=== PATIENT | male | born 1980 ===

== ENCOUNTER 2018-08-09 21:20 | Inpatient (IN) | payer MEDICAID ==
[~2018-08-09] VITALS: Ht 177.8 cm; Wt 76.2 kg
[2018-08-09] MEDS ORDERED: ONDANSETRON 4 MG/2 ML VIAL ONE (21:36)
[2018-08-09] MEDS ORDERED: HYDROMORPHONE 1 MG/1 ML DISP.SYRIN ONE ×2 (21:36→23:40)
[2018-08-09] MEDS ORDERED: HYDR-3326 PO (21:36)
[2018-08-09] MEDS ORDERED: DOXY100T2 PO (21:36)
[2018-08-09 21:42] LABS: BASOPHILS # (AUTO) 0.1 K/uL (0.0-8.0); BASOPHILS % (AUTO) 0.6 % (0.0-2.0); EOSINOPHILS # (AUTO) 0.2 K/uL (0.0-0.7); EOSINOPHILS % (AUTO) 1.9 % (0.0-7.0); HEMATOCRIT 39.7 % (36.7-47.1); HEMOGLOBIN 13.9 g/dL (12.5-16.3); LYMPHOCYTES # (AUTO) 3.8 K/uL (20.0-40.0); LYMPHOCYTES % (AUTO) 37.7 % (20.5-51.5); MEAN CORPUSCULAR HEMOGLOBIN 30.5 uug (23.8-33.4); MEAN CORPUSCULAR HGB CONC 35 g/dL (32.5-36.3); MONOCYTES # (AUTO) 0.8 K/uL (2.0-10.0); MONOCYTES % (AUTO) 8.2 % (0.0-11.0); NEUTROPHILS # (AUTO) 5.2 K/uL (1.8-8.9); NEUTROPHILS % (AUTO) 51.6 % (38.5-71.5); PLATELET COUNT (AUTO) 318 K/uL (152-348); RED BLOOD CELL COUNT(AUTO) 4.56 MIL/uL (4.06-5.63); WHITE BLOOD COUNT (AUTO) 10.1 K/uL (3.6-10.2)
[2018-08-09] MEDS ORDERED: HYDROMORPHONE 1 MG/1 ML DISP.SYRIN IV ONE ×2 (21:45→23:45)
[2018-08-09] MEDS ORDERED: ONDANSETRON 4 MG/2 ML VIAL IV ONE (21:45)
[2018-08-09] MEDS ORDERED: IV NORMAL SALINE 1000 ML BAG IV ONE (21:45)
[2018-08-09 21:51] LABS: POTASSIUM 3.7 mmol/L (3.5-5.1)
[2018-08-09 22:04] LABS: BILIRUBIN,DIRECT 0.1 mg/dL (0.0-0.2); BILIRUBIN,TOTAL 0.4 mg/dL (0.2-1.0); TOTAL PROTEIN, SERUM 7.9 g/dL (6.4-8.2)
[2018-08-09] MEDS ORDERED: LORAZEPAM 2 MG/1 ML VIAL IV ONE (22:15)
[2018-08-09] MEDS ORDERED: LORAZEPAM 2 MG/1 ML VIAL ONE (22:16)
[2018-08-09] MEDS ORDERED: IOHEXOL 300MG/ML 100 ML INFUS..BTL IV ONE (22:44)
[2018-08-09] MEDS ORDERED: NORMAL SALINE FLUSH 10 ML DISP.SYRIN ONE (22:44)
[2018-08-09] MEDS ORDERED: SWABABLE VALVE TRANSFER SET EA MC ONE (22:44)
[2018-08-09] MEDS ORDERED: IV NORMAL SALINE 250 ML IV ONE (22:44)
[2018-08-09] MEDS ORDERED: IOHEXOL 350 100 ML INFUS..BTL ONE (22:44)
[2018-08-10] MEDS ORDERED: KETOROLAC TROMETHAMINE 30 MG INJ IVP ONE (01:15)
[2018-08-10] MEDS ORDERED: KETOROLAC TROMETHAMINE 30 MG INJ ONE (01:21)
[2018-08-10] MEDS ORDERED: Z GUARD REMEDY PASTE 57 GM TUBE TOP PRN (01:30)
[2018-08-10] MEDS ORDERED: ONDANSETRON 4 MG/2 ML VIAL IV PRN (01:30)
[2018-08-10] MEDS ORDERED: HYDROCODONE/APAP 5-325MG TABLET PO PRN (01:30)
[2018-08-10] MEDS: IV NS 1000 ML 1,000 ML IV PRN ×2 (02:19→19:41)
[2018-08-10 02:36] VITALS: BP 125/60
[2018-08-10 04:00] VITALS: BP 117/54
[2018-08-10] MEDS ORDERED: HYDROCODONE/APAP 5-325MG TABLET PO ONE (06:30)
[2018-08-10] MEDS ORDERED: DOXYCYCLINE HYCLATE 100 MG TABLET PO SCH (09:00)
[2018-08-10] MEDS ORDERED: DOXY100C41 PO (09:29)
[2018-08-10] MEDS ORDERED: DOXYCYCLINE HYCLATE 100 MG TABLET PO ONE (10:15)
[2018-08-10] MEDS ORDERED: NICOTINE 21 MG/24HR PATCH TD SCH (10:15)
[2018-08-10] MEDS: NICOTINE 21 MG/24HR PATCH TD SCH (10:35)
[2018-08-10] MEDS: HYDROMORPHONE 1 MG/1 ML DISP.SYRIN IV PRN ×3 (10:36→18:49)
[2018-08-10] MEDS: methylPREDNISolone SOD SUCC 40 MG/ML VIAL IV SCH ×2 (10:56→14:50)
[2018-08-10] MEDS: LEVOFLOXACIN 750MG/D5W 750 MG in PREMIXED 1 EACH IV SCH (10:56)
[2018-08-10 11:16] VITALS: BP 121/68
[2018-08-10 15:21] VITALS: BP 125/73
[2018-08-10 19:00] VITALS: BP 110/70
[2018-08-10 21:06] VITALS: BP 110/70
[2018-08-11] MEDS: methylPREDNISolone SOD SUCC 40 MG/ML VIAL IV SCH ×4 (02:50→21:05)
[2018-08-11] MEDS: HYDROMORPHONE 1 MG/1 ML DISP.SYRIN IV PRN ×4 (03:11→20:54)
[2018-08-11 04:00] VITALS: BP 115/70
[2018-08-11 06:26] LABS: BASOPHILS % (AUTO) 0.1 % (0.0-2.0); HEMATOCRIT 35.2 % (36.7-47.1); HEMOGLOBIN 12.2 g/dL (12.5-16.3); LYMPHOCYTES # (AUTO) 0.7 K/uL (20.0-40.0); LYMPHOCYTES % (AUTO) 5.5 % (20.5-51.5); MEAN CORPUSCULAR HEMOGLOBIN 29.7 uug (23.8-33.4); MEAN CORPUSCULAR HGB CONC 35 g/dL (32.5-36.3); MEAN CORPUSCULAR VOLUME 85.3 fL (73.0-96.2); MONOCYTES # (AUTO) 0.6 K/uL (2.0-10.0); MONOCYTES % (AUTO) 4.7 % (0.0-11.0); NEUTROPHILS # (AUTO) 10.8 K/uL (1.8-8.9); NEUTROPHILS % (AUTO) 89.7 % (38.5-71.5); PLATELET COUNT (AUTO) 281 K/uL (152-348); RED BLOOD CELL COUNT(AUTO) 4.13 MIL/uL (4.06-5.63)
[2018-08-11 06:41] LABS: CREATININE 0.8 mg/dL (0.6-1.3); MAGNESIUM 2.1 mg/dL (1.8-2.4); PHOSPHOROUS 2.5 mg/dL (2.5-4.9); POTASSIUM 3.9 mmol/L (3.5-5.1)
[2018-08-11] MEDS: NICOTINE 21 MG/24HR PATCH TD SCH (08:36)
[2018-08-11 08:42] VITALS: BP 119/71
[2018-08-11] MEDS: LEVOFLOXACIN 750MG/D5W 750 MG in PREMIXED 1 EACH IV SCH (11:10)
[2018-08-11 11:20] VITALS: BP 131/75
[2018-08-11] MEDS ORDERED: HYDR1DIS2 IV (11:28)
[2018-08-11] MEDS ORDERED: NICO-672 TD (11:28)
[2018-08-11] MEDS ORDERED: methylPREDNISolone SOD SUCC IV (11:28)
[2018-08-11] MEDS ORDERED: LEVO750T21 IV (11:28)
[2018-08-11] MEDS ORDERED: IPRA0.2S6 NEB (11:28)
[2018-08-11] MEDS: IV NS 1000 ML 1,000 ML IV PRN (15:10)
[2018-08-11 15:13] LABS: THYROID STIMULATING HORMONE 0.627 mIU/mL (0.358-3.740)
[2018-08-11 15:22] VITALS: BP 111/69
[2018-08-11] MEDS ORDERED: MAGNESIUM HYDROXIDE 30 ML LIQUID UDC PO ONE (18:45)
[2018-08-11 20:00] VITALS: BP 117/64
[2018-08-12] VITALS: BP 125/69
[2018-08-12] MEDS: methylPREDNISolone SOD SUCC 40 MG/ML VIAL IV SCH (05:14)
[2018-08-12] MEDS: HYDROMORPHONE 1 MG/1 ML DISP.SYRIN IV PRN ×3 (05:15→15:22)
[2018-08-12] MEDS: IPRATROPIUM BROMIDE 0.5 MG/2.5 ML NEBU NEB PRN ×3 (05:47→19:57)
[2018-08-12] MEDS: IV NS 1000 ML 1,000 ML IV PRN ×3 (06:51→22:16)
[2018-08-12] MEDS: NICOTINE 21 MG/24HR PATCH TD SCH (08:47)
[2018-08-12] MEDS: HYDROCODONE/APAP 5-325MG TABLET PO PRN ×3 (08:51→21:48)
[2018-08-12 10:18] LABS: BASOPHILS % (AUTO) 0.3 % (0.0-2.0); HEMATOCRIT 38.8 % (36.7-47.1); HEMOGLOBIN 13.2 g/dL (12.5-16.3); LYMPHOCYTES # (AUTO) 0.7 K/uL (20.0-40.0); LYMPHOCYTES % (AUTO) 4.1 % (20.5-51.5); MEAN CORPUSCULAR HEMOGLOBIN 29.7 uug (23.8-33.4); MEAN CORPUSCULAR HGB CONC 34 g/dL (32.5-36.3); MEAN CORPUSCULAR VOLUME 87.1 fL (73.0-96.2); MONOCYTES # (AUTO) 0.4 K/uL (2.0-10.0); MONOCYTES % (AUTO) 2.4 % (0.0-11.0); NEUTROPHILS # (AUTO) 15.6 K/uL (1.8-8.9); NEUTROPHILS % (AUTO) 93.2 % (38.5-71.5); PLATELET COUNT (AUTO) 364 K/uL (152-348); RED BLOOD CELL COUNT(AUTO) 4.45 MIL/uL (4.06-5.63); WHITE BLOOD COUNT (AUTO) 16.7 K/uL (3.6-10.2)
[2018-08-12 10:27] LABS: CREATININE 0.9 mg/dL (0.6-1.3); POTASSIUM 3.9 mmol/L (3.5-5.1)
[2018-08-12 11:02] VITALS: BP 109/66
[2018-08-12] MEDS: LEVOFLOXACIN 750MG/D5W 750 MG in PREMIXED 1 EACH IV SCH (11:29)
[2018-08-12 14:38] LABS: *AMPHETAMINE, URINE NEGATIVE (NEGATIVE); *BARBITURATE, URINE NEGATIVE (NEGATIVE); *CANNABINOID, URINE NEGATIVE (NEGATIVE); *COCCAINE, URINE NEGATIVE (NEGATIVE); *OPIATE, URINE POSITIVE (NEGATIVE); *PHENCYCLIDINE SCREEN,URINE NEGATIVE (NEGATIVE)
[2018-08-12 15:03] VITALS: BP 118/62
[2018-08-12] MEDS: IBUPROFEN 600 MG TABLET PO PRN (15:22)
[2018-08-12 19:53] VITALS: BP 117/65
[2018-08-12] MEDS: FERROUS SULFATE 325 MG TABEC PO SCH (21:50)
[2018-08-12] MEDS: MAGNESIUM HYDROXIDE 30 ML LIQUID UDC PO PRN (21:51)
[2018-08-13 04:37] VITALS: BP 111/65
[2018-08-13] MEDS: HYDROCODONE/APAP 5-325MG TABLET PO PRN (05:47)
[2018-08-13 06:04] LABS: BASOPHILS # (AUTO) 0.1 K/uL (0.0-8.0); BASOPHILS % (AUTO) 0.4 % (0.0-2.0); EOSINOPHILS # (AUTO) 0.1 K/uL (0.0-0.7); EOSINOPHILS % (AUTO) 0.9 % (0.0-7.0); HEMATOCRIT 35.9 % (36.7-47.1); HEMOGLOBIN 12.2 g/dL (12.5-16.3); LYMPHOCYTES # (AUTO) 2.8 K/uL (20.0-40.0); LYMPHOCYTES % (AUTO) 23.4 % (20.5-51.5); MEAN CORPUSCULAR HEMOGLOBIN 29.2 uug (23.8-33.4); MEAN CORPUSCULAR HGB CONC 34 g/dL (32.5-36.3); MONOCYTES # (AUTO) 0.8 K/uL (2.0-10.0); MONOCYTES % (AUTO) 6.4 % (0.0-11.0); NEUTROPHILS # (AUTO) 8.2 K/uL (1.8-8.9); NEUTROPHILS % (AUTO) 68.9 % (38.5-71.5); PLATELET COUNT (AUTO) 326 K/uL (152-348); RED BLOOD CELL COUNT(AUTO) 4.18 MIL/uL (4.06-5.63); WHITE BLOOD COUNT (AUTO) 11.8 K/uL (3.6-10.2)
[2018-08-13 06:17] LABS: CREATININE 0.8 mg/dL (0.6-1.3); MAGNESIUM 2.2 mg/dL (1.8-2.4); PHOSPHOROUS 3.5 mg/dL (2.5-4.9)
[2018-08-13] MEDS: HYDROMORPHONE 1 MG/1 ML DISP.SYRIN IV PRN ×4 (06:55→20:41)
[2018-08-13] MEDS: IPRATROPIUM BROMIDE 0.5 MG/2.5 ML NEBU NEB PRN ×3 (07:11→20:51)
[2018-08-13] MEDS: NICOTINE 21 MG/24HR PATCH TD SCH (08:42)
[2018-08-13] MEDS: FERROUS SULFATE 325 MG TABEC PO SCH ×2 (08:42→20:40)
[2018-08-13] MEDS: IBUPROFEN 600 MG TABLET PO PRN ×2 (09:35→22:42)
[2018-08-13 10:09] LABS: CRYPTOCOCCUS AB, SERUM Negative (Negative)
[2018-08-13] MEDS: IV NS 1000 ML 1,000 ML IV PRN (10:56)
[2018-08-13] MEDS: LEVOFLOXACIN 750MG/D5W 750 MG in PREMIXED 1 EACH IV SCH (10:56)
[2018-08-13] MEDS: LIDOCAINE 5% PATCH TD SCH (10:56)
[2018-08-13 11:46] VITALS: BP 110/67
[2018-08-13] MEDS ORDERED: CEFTRIAXONE 1 G VIAL IV SCH (12:30)
[2018-08-13] MEDS ORDERED: FLUCONAZOLE 400MG /NS 200ML IV 400 MG in PREMIXED 1 EACH IV SCH (13:00)
[2018-08-13] MEDS ORDERED: CEFTRIAXONE 1 G in IV DEXTROSE 5% 50 ML IV SCH (14:00)
[2018-08-13 16:30] VITALS: BP_SYST 119; BP_SYST 135; BP_DIAS 64; BP_DIAS 67
[2018-08-13 20:00] VITALS: BP 119/68
[2018-08-13] MEDS: MAGNESIUM HYDROXIDE 30 ML LIQUID UDC PO PRN (20:40)
[2018-08-14] MEDS: HYDROMORPHONE 1 MG/1 ML DISP.SYRIN IV PRN ×5 (02:44→22:33)
[2018-08-14] MEDS: IV NS 1000 ML 1,000 ML IV PRN ×2 (02:47→13:39)
[2018-08-14] MEDS: IBUPROFEN 600 MG TABLET PO PRN ×3 (05:49→16:41)
[2018-08-14 05:55] VITALS: BP 121/69
[2018-08-14 05:55] LABS: BASOPHILS # (AUTO) 0.1 K/uL (0.0-8.0); BASOPHILS % (AUTO) 0.8 % (0.0-2.0); EOSINOPHILS # (AUTO) 0.4 K/uL (0.0-0.7); HEMATOCRIT 43.5 % (36.7-47.1); HEMOGLOBIN 14.9 g/dL (12.5-16.3); LYMPHOCYTES # (AUTO) 2.4 K/uL (20.0-40.0); LYMPHOCYTES % (AUTO) 21.9 % (20.5-51.5); MEAN CORPUSCULAR HEMOGLOBIN 29.6 uug (23.8-33.4); MEAN CORPUSCULAR HGB CONC 34 g/dL (32.5-36.3); MEAN CORPUSCULAR VOLUME 86.4 fL (73.0-96.2); MONOCYTES # (AUTO) 0.8 K/uL (2.0-10.0); NEUTROPHILS # (AUTO) 7.2 K/uL (1.8-8.9); NEUTROPHILS % (AUTO) 66.3 % (38.5-71.5); PLATELET COUNT (AUTO) 382 K/uL (152-348); RED BLOOD CELL COUNT(AUTO) 5.04 MIL/uL (4.06-5.63); WHITE BLOOD COUNT (AUTO) 10.8 K/uL (3.6-10.2)
[2018-08-14 06:12] LABS: CREATININE 0.8 mg/dL (0.6-1.3); MAGNESIUM 2.5 mg/dL (1.8-2.4); PHOSPHOROUS 3.5 mg/dL (2.5-4.9); POTASSIUM 4.4 mmol/L (3.5-5.1)
[2018-08-14 08:00] VITALS: BP 127/72
[2018-08-14] MEDS: NICOTINE 21 MG/24HR PATCH TD SCH (08:49)
[2018-08-14] MEDS: FERROUS SULFATE 325 MG TABEC PO SCH ×2 (08:49→20:34)
[2018-08-14] MEDS: LIDOCAINE 5% PATCH TD SCH (08:49)
[2018-08-14] MEDS ORDERED: PIPERACILLIN/TAZOBACTAM/D5W 50 ML IV SCH (12:45)
[2018-08-14] MEDS: VANCOMYCIN IV 1,250 MG in IV DEXTROSE 5% 500 ML IV SCH ×2 (13:17→20:34)
[2018-08-14] MEDS: PIPERACILLIN/TAZOBACTAM/D5W 3.375 G in PREMIXED 1 EACH IV SCH ×2 (13:56→22:33)
[2018-08-14] MEDS: IPRATROPIUM BROMIDE 0.5 MG/2.5 ML NEBU NEB PRN ×2 (14:25→18:34)
[2018-08-14] MEDS: FLUCONAZOLE 400MG /NS 200ML IV 400 MG in PREMIXED 1 EACH IV SCH (15:53)
[2018-08-14 16:00] VITALS: BP 125/68
[2018-08-14] MEDS: MAGNESIUM HYDROXIDE 30 ML LIQUID UDC PO PRN (16:39)
[2018-08-14] MEDS: HYDROCODONE/APAP 5-325MG TABLET PO PRN (16:42)
[2018-08-14 19:57] VITALS: BP 119/66
[2018-08-15] MEDS: HYDROMORPHONE 1 MG/1 ML DISP.SYRIN IV PRN ×5 (03:21→20:06)
[2018-08-15] MEDS: ACETAMINOPHEN 325 MG TABLET PO PRN (03:24)
[2018-08-15] MEDS: VANCOMYCIN IV 1,250 MG in IV DEXTROSE 5% 500 ML IV SCH ×3 (04:50→20:04)
[2018-08-15 05:11] VITALS: BP 124/72
[2018-08-15 06:12] LABS: BASOPHILS # (AUTO) 0.1 K/uL (0.0-8.0); BASOPHILS % (AUTO) 0.4 % (0.0-2.0); EOSINOPHILS # (AUTO) 0.3 K/uL (0.0-0.7); EOSINOPHILS % (AUTO) 2.3 % (0.0-7.0); HEMATOCRIT 37.8 % (36.7-47.1); LYMPHOCYTES # (AUTO) 1.5 K/uL (20.0-40.0); LYMPHOCYTES % (AUTO) 10.9 % (20.5-51.5); MEAN CORPUSCULAR HEMOGLOBIN 29.8 uug (23.8-33.4); MEAN CORPUSCULAR HGB CONC 35 g/dL (32.5-36.3); MEAN CORPUSCULAR VOLUME 86.2 fL (73.0-96.2); MONOCYTES # (AUTO) 0.8 K/uL (2.0-10.0); NEUTROPHILS % (AUTO) 80.4 % (38.5-71.5); PLATELET COUNT (AUTO) 334 K/uL (152-348); RED BLOOD CELL COUNT(AUTO) 4.38 MIL/uL (4.06-5.63); WHITE BLOOD COUNT (AUTO) 13.7 K/uL (3.6-10.2)
[2018-08-15 06:25] LABS: CREATININE 0.9 mg/dL (0.6-1.3); MAGNESIUM 2.1 mg/dL (1.8-2.4); PHOSPHOROUS 3.5 mg/dL (2.5-4.9); POTASSIUM 4.4 mmol/L (3.5-5.1)
[2018-08-15] MEDS: PIPERACILLIN/TAZOBACTAM/D5W 3.375 G in PREMIXED 1 EACH IV SCH ×3 (07:34→22:03)
[2018-08-15] MEDS: IV NS 1000 ML 1,000 ML IV PRN (07:35)
[2018-08-15 07:49] VITALS: BP 104/62
[2018-08-15] MEDS: IPRATROPIUM BROMIDE 0.5 MG/2.5 ML NEBU NEB PRN ×2 (08:03→16:25)
[2018-08-15] MEDS: FERROUS SULFATE 325 MG TABEC PO SCH ×2 (08:45→20:04)
[2018-08-15] MEDS: LIDOCAINE 5% PATCH TD SCH (08:46)
[2018-08-15] MEDS: NICOTINE 21 MG/24HR PATCH TD SCH (08:46)
[2018-08-15] MEDS: MAGNESIUM HYDROXIDE 30 ML LIQUID UDC PO PRN ×2 (08:58→20:04)
[2018-08-15] MEDS: IBUPROFEN 600 MG TABLET PO PRN (10:33)
[2018-08-15] MEDS ORDERED: BISACODYL 10 MG SUPP.RECT RC PRN (10:45)
[2018-08-15 11:09] VITALS: BP 126/68
[2018-08-15 12:10] LABS: *BILIRUBIN,URIN NEGATIVE (NEGATIVE); *BLOOD, URINE NEGATIVE (NEGATIVE); *CLARITY,URINE CLEAR (CLEAR); *COLOR,URINE YELLOW (YELLOW); *KETONES,URINE NEGATIVE (NEGATIVE); *PROTEIN,URINE NEGATIVE (NEGATIVE); *UROBILINOGEN,URINE 0.2 E.U./dl (NORMAL); LEUKOCYTE ESTERASE ,URINE NEGATIVE (NEGATIVE); NITRITE, URINE NEGATIVE (NEGATIVE); PH,URINE 7.5 (5.0-8.0); UGLUCOSE NEGATIVE (NEGATIVE)
[2018-08-15 12:23] LABS: RBC,URINE 0-3 /HPF (0-3)
[2018-08-15 12:24] LABS: BACTERIA,URINE NONE SEEN /HPF (NONE SEEN); SQUAMOUS EPITHELIAL CELL,UR FEW /HPF (NONE SEEN)
[2018-08-15 12:25] LABS: MUCUS,URINE FEW /LPF (0-FEW)
[2018-08-15 15:02] VITALS: BP 108/62
[2018-08-15] MEDS: FLUCONAZOLE 400MG /NS 200ML IV 400 MG in PREMIXED 1 EACH IV SCH (15:57)
[2018-08-15 20:00] VITALS: BP 112/68
[2018-08-15 22:56] LABS: *OCCULT BLOOD STOOL POSITIVE (NEGATIVE)
[2018-08-16] MEDS: VANCOMYCIN IV 1,250 MG in IV DEXTROSE 5% 500 ML IV SCH ×3 (03:33→18:29)
[2018-08-16 04:00] VITALS: BP 119/65
[2018-08-16] MEDS: HYDROMORPHONE 1 MG/1 ML DISP.SYRIN IV PRN ×6 (04:18→20:17)
[2018-08-16] MEDS: PIPERACILLIN/TAZOBACTAM/D5W 3.375 G in PREMIXED 1 EACH IV SCH ×3 (05:08→21:01)
[2018-08-16] MEDS: ACETAMINOPHEN 325 MG TABLET PO PRN (05:09)
[2018-08-16] MEDS: IV NS 1000 ML 1,000 ML IV PRN (05:10)
[2018-08-16] MEDS: IPRATROPIUM BROMIDE 0.5 MG/2.5 ML NEBU NEB PRN ×3 (07:18→19:00)
[2018-08-16] MEDS: FERROUS SULFATE 325 MG TABEC PO SCH ×2 (08:17→20:16)
[2018-08-16] MEDS: LIDOCAINE 5% PATCH TD SCH (08:17)
[2018-08-16] MEDS: NICOTINE 21 MG/24HR PATCH TD SCH (08:17)
[2018-08-16] MEDS: IBUPROFEN 600 MG TABLET PO PRN (09:47)
[2018-08-16 10:13] LABS: BASOPHILS # (AUTO) 0.2 K/uL (0.0-8.0); EOSINOPHILS # (AUTO) 0.4 K/uL (0.0-0.7); EOSINOPHILS % (AUTO) 2.3 % (0.0-7.0); HEMATOCRIT 37.5 % (36.7-47.1); HEMOGLOBIN 12.7 g/dL (12.5-16.3); LYMPHOCYTES # (AUTO) 1.5 K/uL (20.0-40.0); LYMPHOCYTES % (AUTO) 8.8 % (20.5-51.5); MEAN CORPUSCULAR HEMOGLOBIN 29.7 uug (23.8-33.4); MEAN CORPUSCULAR HGB CONC 34 g/dL (32.5-36.3); MEAN CORPUSCULAR VOLUME 87.6 fL (73.0-96.2); MONOCYTES # (AUTO) 1.2 K/uL (2.0-10.0); MONOCYTES % (AUTO) 6.6 % (0.0-11.0); NEUTROPHILS # (AUTO) 14.1 K/uL (1.8-8.9); NEUTROPHILS % (AUTO) 81.3 % (38.5-71.5); PLATELET COUNT (AUTO) 478 K/uL (152-348); RED BLOOD CELL COUNT(AUTO) 4.28 MIL/uL (4.06-5.63); WHITE BLOOD COUNT (AUTO) 17.4 K/uL (3.6-10.2)
[2018-08-16 10:19] LABS: POTASSIUM 4.2 mmol/L (3.5-5.1)
[2018-08-16 12:00] VITALS: BP 103/53
[2018-08-16] MEDS: FLUCONAZOLE 400MG /NS 200ML IV 400 MG in PREMIXED 1 EACH IV SCH (15:36)
[2018-08-16 16:00] VITALS: BP_SYST 108; BP_SYST 121; BP_DIAS 56; BP_DIAS 70
[2018-08-16 19:10] VITALS: BP 131/80
[2018-08-17] MEDS: HYDROMORPHONE 1 MG/1 ML DISP.SYRIN IV PRN ×5 (00:17→20:26)
[2018-08-17] MEDS: VANCOMYCIN IV 1,250 MG in IV DEXTROSE 5% 500 ML IV SCH ×3 (02:48→18:29)
[2018-08-17 03:31] VITALS: BP 101/58
[2018-08-17] MEDS: IV NS 1000 ML 1,000 ML IV PRN (05:02)
[2018-08-17] MEDS: PIPERACILLIN/TAZOBACTAM/D5W 3.375 G in PREMIXED 1 EACH IV SCH ×3 (05:02→23:10)
[2018-08-17 05:42] LABS: BASOPHILS # (AUTO) 0.1 K/uL (0.0-8.0); BASOPHILS % (AUTO) 0.6 % (0.0-2.0); EOSINOPHILS # (AUTO) 0.4 K/uL (0.0-0.7); EOSINOPHILS % (AUTO) 3.3 % (0.0-7.0); HEMATOCRIT 35.5 % (36.7-47.1); HEMOGLOBIN 12.3 g/dL (12.5-16.3); LYMPHOCYTES # (AUTO) 1.7 K/uL (20.0-40.0); LYMPHOCYTES % (AUTO) 15.1 % (20.5-51.5); MEAN CORPUSCULAR HEMOGLOBIN 29.6 uug (23.8-33.4); MEAN CORPUSCULAR HGB CONC 35 g/dL (32.5-36.3); MEAN CORPUSCULAR VOLUME 85.4 fL (73.0-96.2); MONOCYTES # (AUTO) 1.1 K/uL (2.0-10.0); NEUTROPHILS # (AUTO) 8.1 K/uL (1.8-8.9); PLATELET COUNT (AUTO) 402 K/uL (152-348); RED BLOOD CELL COUNT(AUTO) 4.15 MIL/uL (4.06-5.63); WHITE BLOOD COUNT (AUTO) 11.4 K/uL (3.6-10.2)
[2018-08-17 05:59] LABS: CREATININE 0.8 mg/dL (0.6-1.3); MAGNESIUM 2.2 mg/dL (1.8-2.4); PHOSPHOROUS 3.7 mg/dL (2.5-4.9); POTASSIUM 4.1 mmol/L (3.5-5.1)
[2018-08-17] MEDS: IPRATROPIUM BROMIDE 0.5 MG/2.5 ML NEBU NEB PRN (08:22)
[2018-08-17] MEDS: FERROUS SULFATE 325 MG TABEC PO SCH ×2 (08:24→20:16)
[2018-08-17] MEDS: NICOTINE 21 MG/24HR PATCH TD SCH (08:24)
[2018-08-17] MEDS: LIDOCAINE 5% PATCH TD SCH (08:24)
[2018-08-17] MEDS: ACETAMINOPHEN 325 MG TABLET PO PRN (11:00)
[2018-08-17 12:09] VITALS: BP 117/68
[2018-08-17] MEDS ORDERED: DOSING BY PHARMACY-MD TO SPECIFY MED/ROUTE XX PRN (13:30)
[2018-08-17] MEDS: SULFAMETHOXAZOL/TRIMETHOPRI IV 20 ML in IV DEXTROSE 5% 500 ML IV SCH ×2 (14:15→21:02)
[2018-08-17 15:40] VITALS: BP 109/59
[2018-08-17] MEDS: VORICONAZOLE 200 MG TABLET PO SCH ×2 (16:00→20:17)
[2018-08-17] MEDS ORDERED: SODIUM CHLORIDE 3% FOR INHALATION 15 ML NEBU IH ONE (16:30)
[2018-08-17 19:47] VITALS: BP 117/69
[2018-08-17] MEDS: PANTOPRAZOLE SODIUM 40 MG VIAL IV SCH (20:16)
[2018-08-18] MEDS: VANCOMYCIN IV 1,250 MG in IV DEXTROSE 5% 500 ML IV SCH ×2 (02:21→15:10)
[2018-08-18] MEDS: ACETAMINOPHEN 325 MG TABLET PO PRN ×2 (04:16→22:02)
[2018-08-18] MEDS: HYDROMORPHONE 1 MG/1 ML DISP.SYRIN IV PRN (04:58)
[2018-08-18] MEDS: SULFAMETHOXAZOL/TRIMETHOPRI IV 20 ML in IV DEXTROSE 5% 500 ML IV SCH ×3 (05:03→22:44)
[2018-08-18 05:20] VITALS: BP 110/60
[2018-08-18] MEDS: IV NS 1000 ML 1,000 ML IV PRN (06:19)
[2018-08-18 06:39] LABS: BASOPHILS # (AUTO) 0.1 K/uL (0.0-8.0); BASOPHILS % (AUTO) 0.8 % (0.0-2.0); EOSINOPHILS # (AUTO) 0.2 K/uL (0.0-0.7); EOSINOPHILS % (AUTO) 1.7 % (0.0-7.0); HEMOGLOBIN 11.9 g/dL (12.5-16.3); LYMPHOCYTES # (AUTO) 1.3 K/uL (20.0-40.0); LYMPHOCYTES % (AUTO) 12.3 % (20.5-51.5); MEAN CORPUSCULAR HEMOGLOBIN 30.2 uug (23.8-33.4); MEAN CORPUSCULAR HGB CONC 35 g/dL (32.5-36.3); MEAN CORPUSCULAR VOLUME 86.4 fL (73.0-96.2); MONOCYTES % (AUTO) 9.2 % (0.0-11.0); NEUTROPHILS # (AUTO) 7.8 K/uL (1.8-8.9); PLATELET COUNT (AUTO) 421 K/uL (152-348); RED BLOOD CELL COUNT(AUTO) 3.93 MIL/uL (4.06-5.63); WHITE BLOOD COUNT (AUTO) 10.3 K/uL (3.6-10.2)
[2018-08-18 06:40] LABS: CREATININE 1.1 mg/dL (0.6-1.3); POTASSIUM 4.1 mmol/L (3.5-5.1)
[2018-08-18] MEDS: PIPERACILLIN/TAZOBACTAM/D5W 3.375 G in PREMIXED 1 EACH IV SCH ×3 (07:14→22:00)
[2018-08-18] MEDS: LIDOCAINE 5% PATCH TD SCH (08:01)
[2018-08-18] MEDS: NICOTINE 21 MG/24HR PATCH TD SCH (08:01)
[2018-08-18] MEDS: PANTOPRAZOLE SODIUM 40 MG VIAL IV SCH ×2 (08:15→21:38)
[2018-08-18] MEDS ORDERED: IV LACTATED RINGERS SOLUTION 1,000 ML BAG IV ONE (09:16)
[2018-08-18] MEDS ORDERED: PROPOFOL 200 MG/20 ML BOTTLE IV ONE (09:16)
[2018-08-18] MEDS ORDERED: LIDOCAINE HCL 2% 20 ML VIAL IJ ONE (09:16)
[2018-08-18] MEDS: FERROUS SULFATE 325 MG TABEC PO SCH ×2 (10:02→21:38)
[2018-08-18] MEDS: VORICONAZOLE 200 MG TABLET PO SCH (10:02)
[2018-08-18 10:18] VITALS: BP 118/63
[2018-08-18 12:00] VITALS: BP 109/60
[2018-08-18] MEDS: HYDROCODONE/APAP 5-325MG TABLET PO PRN (13:20)
[2018-08-18 16:00] VITALS: BP 111/66
[2018-08-18 20:01] VITALS: BP 115/55
[2018-08-18] MEDS: DEXTROSE 5% IV SCH (21:18)
[2018-08-18] MEDS: VORICONAZOLE IV SCH (21:18)
[2018-08-19] MEDS: VANCOMYCIN IV 1,250 MG in IV DEXTROSE 5% 500 ML IV SCH ×2 (02:04→16:09)
[2018-08-19] MEDS: SULFAMETHOXAZOL/TRIMETHOPRI IV 20 ML in IV DEXTROSE 5% 500 ML IV SCH ×2 (05:22→14:04)
[2018-08-19] MEDS: PIPERACILLIN/TAZOBACTAM/D5W 3.375 G in PREMIXED 1 EACH IV SCH ×3 (05:22→22:27)
[2018-08-19 06:22] VITALS: BP 107/56
[2018-08-19 06:52] LABS: CREATININE 1.1 mg/dL (0.6-1.3); POTASSIUM 4.1 mmol/L (3.5-5.1)
[2018-08-19 07:07] LABS: BASOPHILS # (AUTO) 0.1 K/uL (0.0-8.0); EOSINOPHILS # (AUTO) 0.1 K/uL (0.0-0.7)
[2018-08-19 07:34] LABS: BASOPHILS % (AUTO) 0.7 % (0.0-2.0); EOSINOPHILS % (AUTO) 1.3 % (0.0-7.0); LYMPHOCYTES # (AUTO) 1.4 K/uL (20.0-40.0); LYMPHOCYTES % (AUTO) 14.7 % (20.5-51.5); MEAN CORPUSCULAR HEMOGLOBIN 29.6 uug (23.8-33.4); MEAN CORPUSCULAR HGB CONC 34 g/dL (32.5-36.3); MEAN CORPUSCULAR VOLUME 86.8 fL (73.0-96.2); MONOCYTES # (AUTO) 0.8 K/uL (2.0-10.0); MONOCYTES % (AUTO) 8.4 % (0.0-11.0); NEUTROPHILS # (AUTO) 6.9 K/uL (1.8-8.9); NEUTROPHILS % (AUTO) 74.9 % (38.5-71.5); PLATELET COUNT (AUTO) 437 K/uL (152-348); RED BLOOD CELL COUNT(AUTO) 4.36 MIL/uL (4.06-5.63); WHITE BLOOD COUNT (AUTO) 9.2 K/uL (3.6-10.2)
[2018-08-19 07:35] LABS: HEMATOCRIT 37.8 % (36.7-47.1); HEMOGLOBIN 12.9 g/dL (12.5-16.3)
[2018-08-19] MEDS: DEXTROSE 5% IV SCH ×2 (08:07→20:26)
[2018-08-19] MEDS: FERROUS SULFATE 325 MG TABEC PO SCH ×2 (08:07→20:26)
[2018-08-19] MEDS: LIDOCAINE 5% PATCH TD SCH (08:07)
[2018-08-19] MEDS: VORICONAZOLE IV SCH ×2 (08:07→20:26)
[2018-08-19] MEDS: PANTOPRAZOLE SODIUM 40 MG VIAL IV SCH ×2 (08:07→20:26)
[2018-08-19] MEDS: NICOTINE 21 MG/24HR PATCH TD SCH (08:07)
[2018-08-19] MEDS: ACETAMINOPHEN 325 MG TABLET PO PRN ×2 (08:51→17:21)
[2018-08-19 10:07] LABS: IMMUNOGLOBULIN E, TOTAL 47 IU/mL (0-100)
[2018-08-19 11:16] VITALS: BP 108/55
[2018-08-19] MEDS: IV NS 1000 ML 1,000 ML IV PRN (12:17)
[2018-08-19 15:19] VITALS: BP 114/63
[2018-08-19 20:46] VITALS: BP 112/72
[2018-08-20] MEDS: VANCOMYCIN IV 1,250 MG in IV DEXTROSE 5% 500 ML IV SCH (01:45)
[2018-08-20] MEDS: PIPERACILLIN/TAZOBACTAM/D5W 3.375 G in PREMIXED 1 EACH IV SCH ×2 (05:11→13:02)
[2018-08-20 06:28] LABS: BASOPHILS # (AUTO) 0.1 K/uL (0.0-8.0); BASOPHILS % (AUTO) 0.8 % (0.0-2.0); EOSINOPHILS # (AUTO) 0.2 K/uL (0.0-0.7); EOSINOPHILS % (AUTO) 1.5 % (0.0-7.0); HEMATOCRIT 36.9 % (36.7-47.1); HEMOGLOBIN 12.5 g/dL (12.5-16.3); LYMPHOCYTES # (AUTO) 1.8 K/uL (20.0-40.0); LYMPHOCYTES % (AUTO) 17.3 % (20.5-51.5); MEAN CORPUSCULAR HEMOGLOBIN 29.3 uug (23.8-33.4); MEAN CORPUSCULAR HGB CONC 34 g/dL (32.5-36.3); MEAN CORPUSCULAR VOLUME 86.8 fL (73.0-96.2); MONOCYTES % (AUTO) 9.7 % (0.0-11.0); NEUTROPHILS # (AUTO) 7.5 K/uL (1.8-8.9); NEUTROPHILS % (AUTO) 70.7 % (38.5-71.5); PLATELET COUNT (AUTO) 444 K/uL (152-348); RED BLOOD CELL COUNT(AUTO) 4.26 MIL/uL (4.06-5.63); WHITE BLOOD COUNT (AUTO) 10.6 K/uL (3.6-10.2)
[2018-08-20 06:31] LABS: CREATININE 1.1 mg/dL (0.6-1.3); POTASSIUM 4.1 mmol/L (3.5-5.1)
[2018-08-20 06:33] VITALS: BP 106/61
[2018-08-20] MEDS: FERROUS SULFATE 325 MG TABEC PO SCH (08:05)
[2018-08-20] MEDS: NICOTINE 21 MG/24HR PATCH TD SCH (08:05)
[2018-08-20] MEDS: LIDOCAINE 5% PATCH TD SCH (08:05)
[2018-08-20] MEDS: PANTOPRAZOLE SODIUM 40 MG VIAL IV SCH (08:18)
[2018-08-20] MEDS: DEXTROSE 5% IV SCH (08:18)
[2018-08-20] MEDS: VORICONAZOLE IV SCH (08:18)
[2018-08-20] MEDS: MAGNESIUM HYDROXIDE 30 ML LIQUID UDC PO PRN (08:24)
[2018-08-20 11:10] VITALS: BP 123/71
[2018-08-20] MEDS ORDERED: ONDA4SOL2 PO (14:18)
[2018-08-20] MEDS ORDERED: PANT40TA2 PO (14:18)
[2018-08-20] MEDS ORDERED: FLUC200T PO (14:18)
[2018-08-20] MEDS ORDERED: LEVO750T46 PO (14:18)
[2018-08-20] MEDS ORDERED: AMOX-427 PO (14:18)
== END 2018-08-20 14:50 | disposition home or self-care (01) | DRG 139 ==
LOC: ER 21:20 → TELE 08-10 02:07 → MED 08-10 13:49
PROVIDERS: ADMIT Internal Medicine; ATTEND Nurse Practitioner Acute Care
PROC: 0DB68ZX Excision of Stomach, Via Natural or Artificial Opening Endoscopic, Diagnostic (ICD-10-PCS; principal; 2018-08-18 08:45)
DX: J15.9 Unspecified bacterial pneumonia (principal); J81.1 Chronic pulmonary edema; J91.8 Pleural effusion in other conditions classified elsewhere; K25.4 Chronic or unspecified gastric ulcer with hemorrhage; E87.1 Hypo-osmolality and hyponatremia; F17.210 Nicotine dependence, cigarettes, uncomplicated; D50.0 Iron deficiency anemia secondary to blood loss (chronic); J98.11 Atelectasis; M94.0 Chondrocostal junction syndrome [Tietze]; R91.8 Other nonspecific abnormal finding of lung field; Z87.74 Personal history of (corrected) congenital malformations of heart and circulatory system; R61 Generalized hyperhidrosis; R59.0 Localized enlarged lymph nodes
CPT/HCPCS: 36415; 70030-TC; 70450; 71045; 71275; 80307; 82378; 82785; 83550; 83605; 83615; 83735; 84100; 84443; 85025; 85730; 86606; 87040; 87070; 87077; 87086; 87278; 87328; 87400; 87806; 88342; 93005; 93307; 93880; 94640; 94664; A4217; A4663; C9113; G0378; J0696; J1170; J1450; J1885; J1956; J2060; J2405; J2543; J2920; J3370; J3465; J3490; J3590; J7030; J7050; J7060; J7120; Q9967